=== PATIENT | female | born 2000 | race Caucasian/White ===

== ENCOUNTER 2019-01-04 22:00 | Inpatient (IN) ==
[2019-01-04] MEDS ORDERED: Famotidine 20 MG/2 ML VIAL IVP PRN (22:34)
[2019-01-04] MEDS ORDERED: Metoclopramide 10 MG/2 ML VIAL IVP PRN (22:34)
[2019-01-04] MEDS ORDERED: *HR* Nalbuphine 10 MG/ML AMPUL IVP PRN (22:34)
[2019-01-04] MEDS ORDERED: Ondansetron 4 MG/2 ML VIAL IVP PRN (22:34)
[2019-01-04] MEDS ORDERED: Naloxone 0.4 MG/ML INJ IVP PRN (22:34)
[2019-01-04] MEDS ORDERED: Ringers Solution, Lactated 1,000 ML IVC SCH (22:45)
[2019-01-04 23:12] LABS: Basophils % 0.1 %; Hematocrit 33.9 % (35.3-44.9); Hemoglobin 12.2 g/dL (11.5-15.4); Immature Granulocytes % 0.3 % (0-4); Lymphocytes # 1.8 K/mcL (0.6-4.6); Lymphocytes % 20.1 %; Mean Corpuscular Hemoglobin 32.6 pg (28.0-33.3); Mean Corpuscular Volume 90.6 fL (83.0-100.0); Mean Platelet Volume 11.7 fL (9.4-12.4); Monocytes # 0.6 K/mcL (0.0-1.3); Monocytes % 6.7 %; Neutrophils # 6.6 K/mcL (1.6-8.9); Platelet Count 177 K/mcL (140-400); Red Blood Count 3.74 M/mcL (3.82-4.97); Red Cell Distribution Width 12.9 % (11.5-14.5); Segmented Neutrophils % 72.8 %; White Blood Count 9.1 K/mcL (4.3-11.1)
[2019-01-04 23:20] LABS: Amphetamine Screen,Urine Negative ng/mL (Cutoff=1000); Barbiturate Screen,Urine Negative ng/mL (Cutoff=200); Benzodiazepines Screen,Urine Negative ng/mL (Cutoff=200); Cannabinoid Screen,Urine Negative ng/mL (Cutoff = 50); Cocaine Screen,Urine Negative ng/mL (Cutoff= 300); Creatinine,Urine 94 mg/dL; Opiate Screen,Urine Negative ng/mL (Cutoff=300); Phencyclidine Screen,Urine Negative ng/mL (Cutoff=25); Protein/Creatinine Ratio,Urine 0.25 mg/mg (0.00-0.20)
[2019-01-04] MEDS: miSOPROStol 25 MCG TABLET PO PRN (23:24)
[2019-01-04 23:30] LABS: Alanine Aminotransferase 31 Units/L (7-52); Aspartate Amino Transferase 45 Units/L (13-39); BUN/Creatinine Ratio 12 (6-26); Blood Urea Nitrogen 7 mg/dL (6-20); Lactate Dehydrogenase 165 Units/L (140-271); Uric Acid 5.5 mg/dL (2.3-7.6); eGFR For African Americans > 60 (> 60); eGFR For Non-African Americans > 60 (> 60)
[2019-01-05] MEDS: miSOPROStol 25 MCG TABLET PO PRN (03:37)
[2019-01-05] MEDS ORDERED: Epidural Premix (fent/bupiv) 110 ML EP SCH ×2 (06:45→09:45)
[2019-01-05] MEDS ORDERED: *HR* FentaNYL (PF) 100 MCG/2 ML VIAL EP ONE (09:43)
[2019-01-05] MEDS ORDERED: Ropivacaine/PF 0.2% 20 ML VIAL EP ONE (09:43)
[2019-01-05] MEDS ORDERED: EPHEDrine 50 MG/ML VIAL IVP PRN (09:43)
[2019-01-05] MEDS ORDERED: Ondansetron 4 MG/2 ML VIAL IVP PRN (09:43)
[2019-01-05] MEDS ORDERED: Naloxone 0.4 MG/ML INJ IVP PRN (09:43)
[2019-01-05] MEDS ORDERED: Oxytocin 20 units/ LR 1000 mL 20 UNIT/1,000 ML BAG IVC SCH ×2 (13:15→18:19)
[2019-01-05] MEDS ORDERED: Lidocaine -MPF 1% 5 ML AMPUL ONE (15:23)
[2019-01-05] MEDS ORDERED: Oxytocin 20 units/ LR 1000 mL 20 UNIT/1,000 ML BAG IVC ONE (18:19)
[2019-01-05] MEDS ORDERED: Acetaminophen 325 MG TABLET PO PRN (18:19)
[2019-01-05] MEDS ORDERED: Measles/Mumps/Rubella Vacc 0.5 ML VIAL SQ PRN (18:19)
[2019-01-05] MEDS ORDERED: Benzocaine/Menthol 56 GM AEROSOL SPRAY TP PRN (18:19)
[2019-01-05] MEDS ORDERED: Rho Immune Globulin 1,500 UNIT SYRINGE IM PRN (18:19)
[2019-01-06] MEDS: Ibuprofen 600 MG TABLET PO PRN ×2 (03:22→09:59)
[2019-01-06] MEDS ORDERED: Prenatal Vit/FA 1 EACH TABLET PO SCH (09:00)
[2019-01-06 09:13] VITALS: BP 125/79
[2019-01-06 10:47] LABS: Basophils % 0.2 %; Eosinophils % 0.1 %; Hematocrit 30.9 % (35.3-44.9); Immature Granulocytes % 0.6 % (0-4); Lymphocytes # 2.7 K/mcL (0.6-4.6); Lymphocytes % 24.9 %; Mean Corpuscular HGB Conc 35.6 g/dL (31.6-35.5); Mean Corpuscular Hemoglobin 32.8 pg (28.0-33.3); Mean Corpuscular Volume 92.2 fL (83.0-100.0); Monocytes # 0.6 K/mcL (0.0-1.3); Monocytes % 5.9 %; Neutrophils # 7.4 K/mcL (1.6-8.9); Platelet Count 159 K/mcL (140-400); Red Blood Count 3.35 M/mcL (3.82-4.97); Red Cell Distribution Width 13.5 % (11.5-14.5); Segmented Neutrophils % 68.3 %; White Blood Count 10.8 K/mcL (4.3-11.1)
== END 2019-01-06 16:30 | disposition home or self-care (01) | DRG 560 ==
LOC: 1NENULAB 22:06 → 1NENUOBS 01-05 18:11
PROVIDERS: ADMIT Student in an Organized Health Care Education/Training Program; ATTEND Student in an Organized Health Care Education/Training Program